=== PATIENT | female | born 1975 | race Two or more races ===

== ENCOUNTER 2020-11-21 15:15 | Emergency (ER) | payer OTHER ==
[~2020-11-21] VITALS: Ht 170.2 cm; Wt 52.2 kg
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
[2020-11-21] MEDS ORDERED: LORAZEPAM INJ 2 MG/ML VIAL IM ONE (17:00)
--- NOTE | 2020-11-21 17:46 | NUR ---
wheeled patient to ct accompanied by jo.
[2020-11-21 18:00] VITALS: BP 114/62
== END 2020-11-21 18:16 ==
LOC: ER 15:24
DX: F10.129 Alcohol abuse with intoxication, unspecified (principal); R47.81 Slurred speech; J45.909 Unspecified asthma, uncomplicated; F41.9 Anxiety disorder, unspecified; Z91.048 Other nonmedicinal substance allergy status; Y90.9 Presence of alcohol in blood, level not specified
CPT/HCPCS: 70450-TC; 84703-TC